=== PATIENT | male | born 1950 | race Caucasian/White ===

== ENCOUNTER 2018-11-05 06:50 | Outpatient (CLI) | payer OTHER ==
[~2018-11-05] VITALS: Ht 170.2 cm; Wt 80.7 kg
[~2018-11-05 06:50] MED LIST: CITA20TA12 PO; GLUC100016 PO; LOSA1TAB3 PO; MULT1CAP27 PO; SIMV40TA4 PO
[2018-11-05] MEDS ORDERED: HYDR-3812 PO (09:10)
== END 2018-11-05 09:13 | disposition home or self-care (01) ==
LOC: PREOP 06:50
PROVIDERS: ATTEND Internal Medicine
DX: Z01.818 Encounter for other preprocedural examination (principal)

== ENCOUNTER 2018-11-06 07:18 | Day surgery (SDC) | payer OTHER ==
--- NOTE | 2018-11-02 18:32 | HISTORY AND PHYSICAL ---
DATE OF SERVICE: COLONOSCOPY HISTORY AND PHYSICAL HISTORY OF PRESENT ILLNESS: The patient is a 68-year-old white male, referred for diagnostic colonoscopy. He has been having rectal and anal canal pain with intermittent bright red blood per rectum since the summer. It is worse after the passage of hard stool, but the pain does not persist long after the bowel movement. He last underwent colonoscopy a little over 3 years ago at which time he did have some telangiectatic blood vessels in the anal canal, had no evidence for fissure formation and no evidence for neoplasia at that time. He is not sure whether or not this could have followed the passage of hard stool, but has been avoiding constipation through diet since. He tried what sounds like a Proctofoam with only mild improvement in symptoms, which are still happening on a regular basis. 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 He has had no past history of cardiovascular disease and reports no significant changes in health history over the past 3.5 years since I last saw the patient. FAMILY HISTORY: Mother at the age of 83 secondary to ovarian cancer, she also history had a of coronary artery disease and had undergone valvular replacement for likely aortic stenosis and father at age 72 due to heart disease per the patient's report. SOCIAL HISTORY: The patient is retired, no past smoking history with occasional social alcohol intake. PHYSICAL EXAMINATION: GENERAL: Reveals a pleasant white male, appears to be in no acute distress. VITAL SIGNS: Blood pressure is 132/74, heart rate 72 and regular, and weight 178 pounds which is down over 20 pounds from 3-1/2 years ago. The patient states he was told he did have prediabetes and that his weight loss is followed thus with dietary change for which he was recommended. HEENT: Unremarkable. He is a Mallampati class 3 oropharyngeal configuration. NECK: Revealed no JVD, adenopathy or bruits. CHEST: Clear to auscultation. CARDIOVASCULAR: Reveals a regular rate and rhythm with a 2/6 systolic ejection murmur heard best at intercostal space. There are some blunting events too, no diastolic murmurs are appreciated. There is no evidence for significant pulsus parvus et tardus. ABDOMEN: Soft, supple without mass, organomegaly or tenderness. EXTREMITIES: Reveal no cyanosis, clubbing or edema. ASSESSMENT AND PLAN: 1. The patient is undergoing diagnostic colonoscopy due to ongoing rectal pain with bright red blood per rectum. Prep instructions with Suprep kit were given and questions were answered. 2. Hypertension under good control. Thank you for the referral of this pleasant gentleman. Job ID: [id number] DocumentID: [id number] Dictated Date: 10/31/2018 16:51:54 Senior Enterprise Architect Date: 10/31/2018 18:21:56 Dictated By: DEVYN PEREZ MD MTDD
[~2018-11-06] VITALS: Ht 170.2 cm; Wt 80.7 kg
[~2018-11-06 07:18] MED LIST changes: +HYDR-3812 PO
[2018-11-06] MEDS ORDERED: D5 LR IV SOLUTION 1,000 ML IV ONE (07:19)
--- OUTSIDE RECORDS SUMMARY | 2018-11-06 07:21 | XMS REPORT | Continuity of Care Document ---
Author Author [facility] Organization [facility] Address Unknown Phone Unavailable Allergies Active Description Code Type Severity Reaction Onset Reported/Identified Relationship to Patient Clinical Status Yes No Known Drug Allergies [id number] Drug Allergy Unknown N/A 09/28/2010 Yes Penicillins [id number] Drug Allergy Unknown swelling 08/24/2015 Medications There is no data. Problems Date Dx Coded Attending Type Code Diagnosis Diagnosed By 09/28/2010 Ot 455.0 09/28/2010 Ot 600.00 09/28/2010 Ot V12.72 09/28/2010 Ot V67.09 02/08/2011 Ot 719.41 02/08/2011 Ot V57.21 02/08/2011 Ot V58.43 10/11/2012 Ot 842.10 10/11/2012 Ot E000.0 10/11/2012 Ot E849.3 10/11/2012 Ot E917.9 10/11/2012 Ot V57.21 08/18/2015 Ot 840.6 08/18/2015 Ot E849.0 08/18/2015 Ot E888.9 08/25/2015 Ot 842.10 08/25/2015 Ot E000.8 08/25/2015 Ot E928.9 08/25/2015 DEVYN PEREZ MD Ot Z12.11 ENCOUNTER FOR SCREENING FOR MALIGNANT NE 08/25/2015 DEVYN PEREZ MD Ot Z86.010 PERSONAL HISTORY OF COLONIC POLYPS 11/05/2018 DEVYN PEREZ MD Ot Z01.818 ENCOUNTER FOR OTHER PREPROCEDURAL EXAMIN 11/05/2018 DEVYN PEREZ MD Ot Z12.11 ENCOUNTER FOR SCREENING FOR MALIGNANT NE 11/05/2018 DEVYN PEREZ MD Ot Z01.818 ENCOUNTER FOR OTHER PREPROCEDURAL EXAMIN 11/05/2018 DEVYN PEREZ MD Ot Z12.11 ENCOUNTER FOR SCREENING FOR MALIGNANT NE Procedures There is no data. Results There is no data. Encounters ACCT No. Visit Date/Time Discharge Status Pt. Type Provider Facility Loc./Unit Complaint [id number] 11/05/2018 06:50:00 11/05/2018 09:13:00 DIS Outpatient DEVYN PEREZ MD [facility] PREOP COLONOSCOPY [id number] 08/25/2015 11:22:00 08/25/2015 13:10:00 DIS Outpatient DEVYN PEREZ MD [facility] SDC SCREENING [id number] 08/24/2015 05:38:00 08/24/2015 23:59:59 CLS Outpatient DEVYN PEREZ MD [facility] PREOP SCREENING [id number] 07/05/2013 15:02:00 07/05/2013 23:59:59 CLS Outpatient [id number] 11/06/2018 07:18:00 ACT Outpatient DEVYN PEREZ MD [facility] ENDO SCREENING [id number] 09/20/2012 17:42:00 Document Registration [id number] 09/12/2012 15:20:00 Document Registration [id number] 01/21/2011 08:50:00 Document Registration [id number] 09/29/2010 08:38:00 Document Registration [id number] 09/28/2010 05:44:00 Document Registration
[2018-11-06] MEDS ORDERED: fentaNYL INJECTION 100 MCG/2 ML AMP ONE (07:36)
[2018-11-06] MEDS ORDERED: MIDAZOLAM 2 MG/2 ML (VERSED) VIAL ONE ×2 (07:36→07:46)
[2018-11-06] MEDS ORDERED: LIDOCAINE JELLY 2% 6 ML SYRINGE ONE (07:37)
[2018-11-06] MEDS ORDERED: D5 LR IV SOLUTION 1,000 ML IV STA (07:56)
[2018-11-06] MEDS ORDERED: LIDOCAINE JELLY 2% 6 ML SYRINGE MM PRN (08:00)
[2018-11-06] MEDS ORDERED: MIDAZOLAM 2 MG/2 ML (VERSED) VIAL IVP ONE (08:00)
[2018-11-06] MEDS ORDERED: fentaNYL INJECTION 100 MCG/2 ML AMP IVP ONE (08:00)
[2018-11-06 08:01] VITALS: BP 132/80
--- NOTE | 2018-11-06 08:19 | Pre-Op Note & Conscious Sedat ---
Pre-Operative Progress Note H&P Reviewed The H&P was reviewed, patient examined and no changes noted. Date H&P Reviewed: Nov 06, 2018 Time H&P Reviewed: 07:30 Conscious Sedation Pre-Proced ASA Score 2 For ASA 3 and 4: Consider anesthesia and medical clearance. Also, for patients with a history of failed moderate sedation consider anesthesia. Airway Lungs Heart ASA score ASA 1: a normal healthy patient ASA 2: a patient with a mild systemic disease (mid diabetes, controlled hypertension, obesity ASA 3: a patient with a severe systemic disease that limits activity (angina , COPD, prior Myocardial infarction) ASA 4: a patient with an incapacitating disease that is a constant threat to life (CHF, renal failure) ASA 5: a moribund patient not expected to survive 24 hrs. (ruptured aneurysm) ASA 6: a declared brain- patient whose organs are being harvested. For emergent operations, add the letter E after the classification Mallampati Classification Grade 2 Sedation Plan Analgesia, Amnesia, Plan communicated to team members, Discussed options with patient/fam, Discussed risks with patient/fam The patient is an appropriate candidate to undergo the planned procedure, sedation, and anesthesia. The patient immediately re-assessed prior to indication. DEVYN PEREZ MD Nov 06, 2018 08:19
[2018-11-06 08:25] VITALS: BP 144/69
[2018-11-06 08:50] VITALS: BP 120/84
[2018-11-06 08:57] VITALS: BP 120/84
[2018-11-06 08:58] VITALS: BP 120/84
--- NOTE | 2018-11-06 12:04 | OPERATIVE REPORT ---
DATE OF SERVICE: COLONOSCOPY SUMMARY INDICATION FOR THE PROCEDURE: Rectal bleeding with painful defecation. The patient was placed in left lateral decubitus position. Prior to the colonoscopy, digital rectal evaluation was performed. There is increased anal sphincter tone and digital findings compatible with rather broad-based anal fissure centered around the 6 o'clock position. Despite sedation, digital rectal evaluation was painful for the patient. No evidence for hemorrhoids were noted. Prostate is mildly enlarged, anodular and nontender to digital inspection. The colonoscope was then inserted into the rectum under direct visualization advanced to the cecum. The cecum was identified by identification of the ileocecal valve and cecal strap as well as appendiceal orifice. Photographic documentation was obtained. Careful inspection was made as the colonoscope was withdrawn. The quality of prep was good. FINDINGS: There was increased anal sphincter tone with now what appears to be benign fissure centered around the 6 o'clock position without evidence for internal hemorrhoids. There are some telangiectatic blood vessels of the anal canal. The rectum was unremarkable. Present in the distal sigmoid colon was a diminutive 3 mm sessile polyp. It was photographed and biopsied and ablated with no subsequent blood loss. The remainder of the sigmoid colon was unremarkable. No diverticulum was identified. The descending colon and splenic flexure were unremarkable. Present in the proximal transverse colon was appeared to be a sessile polyp. It was photographed and biopsied and ablated with minimal blood loss. The hepatic flexure, ascending colon and cecum were unremarkable. ASSESSMENT: 1. Digital and endoscopic findings are compatible with anal fissure centered around the 6 o'clock position with significant increased rectal sphincter tone the most likely cause of this patient's symptoms. I did contact [facility] to have them compound 2% diltiazem cream, which the patient will initiate at two to three times daily. It was advised that he initiate MiraLax one-half to one cap with fluid daily to maintain soft stool. I did discuss surgical options if medical options are not successful. 2. Two diminutive polyps were removed today, one from the distal sigmoid colon , the other one from the proximal transverse colon. As long as there is no surprise on histopathology report, would advocate consideration for repeat surveillance colonoscopy in 5 years. Lastly, digital rectal evaluation was compatible with mild BPH without evidence for prostate nodularity. I thank you for the referral of this pleasant gentleman. Job ID: [id number] DocumentID: [id number] Dictated Date: 11/06/2018 09:26:04 Maintenance Truck Driver Date: 11/06/2018 12:04:08 Dictated By: DEVYN PEREZ MD MTDD
== END 2018-11-06 09:00 | disposition home or self-care (01) ==
LOC: ENDO 07:18
PROVIDERS: ATTEND Internal Medicine
DX: K60.2 Anal fissure, unspecified (principal); K63.5 Polyp of colon; N40.0 Benign prostatic hyperplasia without lower urinary tract symptoms; I10 Essential (primary) hypertension; E78.5 Hyperlipidemia, unspecified; Z79.899 Other long term (current) drug therapy

== ENCOUNTER → 2021-11-26 | Outpatient (CLI) | payer MEDICARE ==
[~2021-11-26] MED LIST changes: +ACHD5005 PO; -HYDR-3812 PO; +SIMV40TA25 PO; -SIMV40TA4 PO
== END ==
LOC: CARD 09:30
PROVIDERS: ATTEND Internal Medicine
DX: I08.0 Rheumatic disorders of both mitral and aortic valves (principal)
CPT/HCPCS: 93306